=== PATIENT | male | born 1955 | race Caucasian/White ===

== ENCOUNTER → 2019-12-02 | Outpatient (REF) | payer BC ==
[~2019-12-02] MED LIST: ATIV1TAB7 PO; CIAL5TAB PO; CLIN150C14 PO; DOXE10CA PO; IMIT100T PO; LITH300C PO; OXYC1TAB23 PO; RISP1TAB42 PO; SUMA100T2 PO
[2019-12-02 13:10] LABS: BASO # 0.1 10^3/uL (0.0-0.2); BASO % 0.8 % (0.0-1.0); EOS # 0.3 10^3/uL (0.0-0.5); HEMATOCRIT 48.4 % (42.0-52.0); HEMOGLOBIN 15.4 g/dl (13.5-17.5); LYMPH # 1.3 10^3/uL (1.5-5.0); LYMPH % 20.5 % (24.0-44.0); MEAN CORPUSCULAR HEMOGLOBIN 30.2 pg (27.0-33.0); MEAN CORPUSCULAR HGB CONC 31.8 g/dl (32.0-36.5); MEAN CORPUSCULAR VOLUME 94.9 fl (80.0-96.0); MONO # 0.5 10^3/uL (0.0-0.8); MONO % 7.7 % (0.0-5.0); NEUTROPHILS # 4.2 10^3/uL (1.5-8.5); NEUTROPHILS % 66.5 % (36.0-66.0); PLATELET COUNT, AUTOMATED 220 10^3/uL (150-450); WHITE BLOOD COUNT 6.3 10^3/uL (4.0-10.0)
[2019-12-02 13:14] LABS: ALBUMIN 3.8 GM/DL (3.2-5.2); ALT/SGPT 43 U/L (12-78); BILIRUBIN,TOTAL 0.5 MG/DL (0.2-1.0); BLOOD UREA NITROGEN 10 MG/DL (7-18); CALCIUM LEVEL 8.6 MG/DL (8.8-10.2); CARBON DIOXIDE LEVEL 29 MEQ/L (21-32); CHLORIDE LEVEL 107 MEQ/L (98-107); CREATININE FOR GFR 0.99 MG/DL (0.70-1.30); GLOMERULAR FILTRATION RATE > 60.0 (>49); GLUCOSE, FASTING 85 MG/DL (70-100); NT-PRO BNP 43 PG/ML (<125); POTASSIUM SERUM 4.3 MEQ/L (3.5-5.1); SODIUM LEVEL 140 MEQ/L (136-145); TOTAL PROTEIN 6.4 GM/DL (6.4-8.2)
== END ==
LOC: M LABDRAW1 09:45
PROVIDERS: ATTEND Internal Medicine Cardiovascular Disease
DX: R07.2 Precordial pain (principal); E78.00 Pure hypercholesterolemia, unspecified; R06.02 Shortness of breath; R60.0 Localized edema

== ENCOUNTER 2023-08-07 12:42 | Emergency (ER) | payer BC ==
[~2023-08-07] VITALS: Ht 180.3 cm; Wt 98.7 kg
[~2023-08-07 12:42] MED LIST changes: -CLIN150C14 PO; +CLIN150C17 PO
[2023-08-07] MEDS ORDERED: LAMO150T3 (12:54)
[2023-08-07] MEDS ORDERED: CLOP75TA2 (12:54)
[2023-08-07] MEDS ORDERED: OMEP-173 (12:54)
[2023-08-07] MEDS ORDERED: ATEN25TA (12:54)
[2023-08-07] MEDS ORDERED: ATOR80TA59 (12:54)
[2023-08-07 14:48] VITALS: BP 159/90; TEMP 97.2; O2SAT 98
== END 2023-08-07 14:49 | disposition home or self-care (01) ==
LOC: M ED 12:42
DX: S06.0X0A Concussion without loss of consciousness, initial encounter (principal); S00.81XA Abrasion of other part of head, initial encounter; W00.0XXA Fall on same level due to ice and snow, initial encounter; Y92.89 Other specified places as the place of occurrence of the external cause; Y93.89 Activity, other specified; Y99.8 Other external cause status; I25.10 Atherosclerotic heart disease of native coronary artery without angina pectoris; G40.909 Epilepsy, unspecified, not intractable, without status epilepticus; F31.9 Bipolar disorder, unspecified; N52.9 Male erectile dysfunction, unspecified; Z79.02 Long term (current) use of antithrombotics/antiplatelets; Z79.899 Other long term (current) drug therapy; Z88.8 Allergy status to other drugs, medicaments and biological substances; Z85.46 Personal history of malignant neoplasm of prostate